=== PATIENT | female | born 1975 | race Caucasian/White ===

== ENCOUNTER → 2016-07-31 | Outpatient (CLI) | payer OTHER ==
[2016-07-31 10:48] LABS: ALT 36 U/L (9-52); AST 24 U/L (14-36); Cholesterol 102 mg/dL (<200); HDL Cholesterol 46 mg/dL (40-60); Triglycerides 126 mg/dL (<150)
== END | disposition home or self-care (01) ==
LOC: LABWHC1 10:01
PROVIDERS: ATTEND Internal Medicine Cardiovascular Disease
DX: E78.2 Mixed hyperlipidemia (principal)
CPT/HCPCS: 36415; 80061; 84450; 84460

== ENCOUNTER 2016-08-06 08:04 | Day surgery (SDC) | payer OTHER ==
[2016-07-31 13:31] VITALS: BMI 26.2
[~2016-08-06 08:04] MED LIST: LACTATED RINGERS 1,000 ML IV SCH
[2016-08-06 08:39] VITALS: RESP 16; TEMP 98.4
[2016-08-06] MEDS ORDERED: fentaNYL (PF) 50 MCG/ML 5 ML AMP IVP STA (08:53)
[2016-08-06] MEDS ORDERED: MIDAZOLAM 2 MG/2 ML VIAL IV ONE (08:53)
[2016-08-06] MEDS ORDERED: LIDOCAINE 1% 20 ML VIAL (10MG/ML) FOR IV START INTRADERMA ONE (09:00)
[2016-08-06] MEDS ORDERED: PROPOFOL 10 MG/ML 20 ML VIAL IV ONE (09:06)
[2016-08-06] MEDS ORDERED: LIDOCAINE 1% INJ 10MG/ML (20 ML MDV) ONE (09:06)
--- NOTE | 2016-08-06 09:06 | P.GSHP ---
History of Present Illness H&P Date: 08/06/16 Chief Complaint: GI bleed, hemorrhoids This a 41-year-old female referred from Dr. sanders. Patient issues with rectal bleeding and hemorrhoids. She does today for colonoscopy. - Constitutional Constitutional: Reports as per HPI Past Medical History Past Medical History: Atrial Fibrillation, Chest Pain / Angina, Hyperlipidemia, Hypertension, Myocardial Infarction ([place]), Osteoarthritis (OA) Additional Past Medical History / Comment(s): BLOOD IN STOOL, BACK PAIN Last Myocardial Infarction Date:: 05/05/14 History of Any Multi-Drug Resistant Organisms: None Reported Past Surgical History: AICD, Back Surgery, Cholecystectomy, Heart Catheterization With Stent, Tubal Ligation Additional Past Surgical History / Comment(s): Ovarian cyst removal, Rt foot surgery- screws. BACK SURGERY X3, CERVICAL FUSION X1 WITH PLATE , LEFT FOOT SURGERY Past Anesthesia/Blood Transfusion Reactions: Motion Sickness Additional Past Anesthesia/Blood Transfusion Reaction / Comment(s): STATES NEEDS HIGH AMOUNT OF PAIN MEDS R/T MEDICATION HX, CHRONIC BACK ISSUES Date of Last Stent Placement:: 05/05/2014 Type of Cardiac Device: AICD Device Placement Date:: 09/30/14 [employer] Past Psychological History: Anxiety, Depression Smoking Status: Former smoker Past Alcohol Use History: None Reported Additional Past Alcohol Use History / Comment(s): QUIT SMOKING 2013, SMOKED 1/2 PPD, STARTED SMOKING AT AGE 17 (1991) Past Drug Use History: Marijuana Additional Drug Use History / Comment(s): States medical marijuana, uses daily. INFORMED TO WITHOLD 24 HRS PRIOR TO PROCEDURE - Past Family History Father Family Medical History: Unable to Obtain Mother Family Medical History: Hypertension Medications and Allergies Home Medications Medication Instructions Recorded Confirmed Type Aspirin 325 mg PO DAILY 07/06/14 08/06/16 History Atorvastatin Calcium [Lipitor] 80 mg PO HS 07/06/14 08/06/16 History ALPRAZolam [Xanax] 1 mg PO TID 06/01/15 08/06/16 History Lisinopril [Zestril] 5 mg PO HS 06/01/15 08/06/16 History Montelukast [Singulair] 10 mg PO HS 06/01/15 08/06/16 History Citalopram Hydrobromide [CeleXA] 20 mg PO DAILY 01/03/16 08/06/16 History Morphine Sulfate ER [Ms Contin] 60 mg PO BID 01/03/16 08/06/16 History Morphine Sulfate [Ms Contin] 15 mg PO BID 01/03/16 08/06/16 History Gabapentin 600 mg PO TID 06/25/16 08/06/16 History Metoprolol Tartrate [Lopressor] 25 mg PO DAILY 06/25/16 08/06/16 History Ranitidine HCl 150 mg PO DAILY PRN 07/31/16 08/06/16 History Allergies Allergy/AdvReac Type Severity Reaction Status Date / Time pregabalin [From Lyrica] Allergy Mild Swelling Verified 08/06/16 08:37 sulfamethoxazole Allergy Mild Nausea & Verified 08/06/16 08:37 [From Bactrim] Vomiting trimethoprim [From Bactrim] Allergy Mild Nausea & Verified 08/06/16 08:37 Vomiting Surgical - Exam Vital Signs Temp Pulse Resp BP Pulse Ox 98.4 F 88 16 110/59 97 08/06/16 08:37 08/06/16 08:37 08/06/16 08:37 08/06/16 08:37 08/06/16 08:37 - General well developed, well nourished, no distress - Eyes PERRL - ENT normal pinna - Neck no masses - Respiratory normal expansion - Cardiovascular Rhythm: regular - Abdomen Abdomen: soft, non tender Assessment and Plan Plan: GI bleed, hemorrhoids. We'll perform colonoscopy.
--- NOTE | 2016-08-06 09:26 | P.OP ---
Date of Procedure: 08/06/16 Preoperative Diagnosis: GI bleed Hemorrhoids Postoperative Diagnosis: Proctitis pathology pending Internal and external hemorrhoids Procedure(s) Performed: Colonoscopy Anesthesia: MAC Surgeon: Jose Angel Weeks Pathology: other (Rectum) Condition: stable Disposition: PACU Description of Procedure: The patient's placed on the endoscopy table in the lateral position. She received IV sedation. Digital rectal exam was performed which revealed internal and external hemorrhoids. The flexible colonoscope was then placed patient anus and passed throughout the entire colon. The ileocecal valve was visualized. The cecum, ascending and transverse colon appeared normal. In the descending and sigmoid colon there is no evidence of any polyps or tumors or diverticula. Scope was then brought back the rectum and there. Minimal area of mild inflammation this area is biopsied. The scope was then retroflexed and the internal hemorrhoids are seen. Scope was withdrawn from the anus.
[2016-08-06 10:20] VITALS: BP 84/57; PULSE 49
== END 2016-08-06 10:27 | disposition home or self-care (01) ==
LOC: ORWHC2ENDO 08:04
PROVIDERS: ATTEND Surgery
DX: K62.89 Other specified diseases of anus and rectum (principal); K64.4 Residual hemorrhoidal skin tags; K64.8 Other hemorrhoids; I25.119 Atherosclerotic heart disease of native coronary artery with unspecified angina pectoris; I10 Essential (primary) hypertension; E78.5 Hyperlipidemia, unspecified; M19.90 Unspecified osteoarthritis, unspecified site; Z95.810 Presence of automatic (implantable) cardiac defibrillator; Z88.1 Allergy status to other antibiotic agents; Z88.8 Allergy status to other drugs, medicaments and biological substances; I25.2 Old myocardial infarction; Z95.5 Presence of coronary angioplasty implant and graft; Z87.891 Personal history of nicotine dependence
CPT/HCPCS: 81025; 88305; 45380; J2001; J3010; J2704

== ENCOUNTER → 2016-08-25 | Day surgery (SDC) | payer OTHER ==
[2016-08-19 14:40] VITALS: BMI 26.6
[~2016-08-25] MED LIST changes: +BUPIVACAIN-EPI 0.5%-1:200,000 30 ML VIAL SQ ONE; +DEXAMETHASONE SOD PHOSPHATE 10 MG/ML 1 ML VIAL IV ONE; +FAMOTIDINE 20 MG/2 ML VIAL IV PRN; +GELATIN SPONGE,ABSORB (LARGE) 1 EACH SPONGE TOPICAL ONE; +GLYCOPYRROLATE 0.2 MG/ML 2 ML VIAL ONE; +HEPARIN SODIUM,PORCINE 5,000 UNIT/ML 1 ML VIAL SQ ONE; +HYDROmorphone (PF) 1 MG/ML ONE; +HYDROmorphone 1 MG/ML 1 ML SYRINGE IVP PRN; +KETAMINE 10 MG/ML 20 ML VIAL ONE; +LACTATED RINGERS 1,000 ML IV ONE; +LIDOCAINE 1% 20 ML VIAL (10MG/ML) FOR IV START INTRADERMA PRN; +LIDOCAINE 1% INJ 10MG/ML (20 ML MDV) ONE; +MIDAZOLAM 2 MG/2 ML VIAL IV PRN; +MIDAZOLAM 2 MG/2 ML VIAL ONE; +NA PHOS,M-B/NA PHOS,DI-BA 133 ML ENEMA RECTAL ONE; +ONDANSETRON 4 MG/2 ML VIAL IVP ONE; +PROPOFOL 10 MG/ML 20 ML VIAL IV ONE; +Pre Op ABX Message 1 EACH MISC MISCELLANE ONE; +SCOPOLAMINE 1.5MG/72HR PATCH TRANSDERM ONE; +fentaNYL (PF) 50 MCG/ML 2 ML AMP ONE
[2016-08-25 07:00] VITALS: TEMP 97.9
--- NOTE | 2016-08-25 07:52 | P.GSHP ---
History of Present Illness H&P Date: 08/25/16 Chief Complaint: Internal and external hemorrhoids This is a 41-year-old female who presents today for hemorrhoidectomy. Patient has chronic pain and is on morphine. She's had issues with opioid constipation. She's had problems with pain and bleeding and itching. - Constitutional Constitutional: Reports as per HPI Past Medical History Past Medical History: Atrial Fibrillation, Coronary Artery Disease (CAD), Chest Pain / Angina, Fibromyalgia, GERD/Reflux, Hyperlipidemia, Myocardial Infarction ([place]), Osteoarthritis (OA) Additional Past Medical History / Comment(s): hx MIGRAINES,INTERSTITIAL CYSTITIS , CHRONIC BACK PAIN, DDD and HERNIATED DISCS, NEUROPATHY randall LEG & rt ARM. USES CANE or walker TO AMBULATE, "low blood pressure", constipation- Last Myocardial Infarction Date:: 05/05/14 History of Any Multi-Drug Resistant Organisms: None Reported Past Surgical History: AICD, Back Surgery, Cholecystectomy, Heart Catheterization With Stent, Orthopedic Surgery, Tubal Ligation Additional Past Surgical History / Comment(s): Ovarian cyst removal, Rt foot surgery-3 screws. BACK SURGERY X3, CERVICAL FUSION X1 WITH PLATE(Full mobility) , left foot joint removed from 2nd toe Past Anesthesia/Blood Transfusion Reactions: Motion Sickness Additional Past Anesthesia/Blood Transfusion Reaction / Comment(s): STATES NEEDS HIGH AMOUNT OF PAIN MEDS R/T MEDICATION HX, full mobility of neck-states no problems with intubation Date of Last Stent Placement:: 05/05/2014 Type of Cardiac Device: AICD Device Placement Date:: 09/30/14 [employer] Past Psychological History: Anxiety Smoking Status: Former smoker Past Alcohol Use History: None Reported Additional Past Alcohol Use History / Comment(s): QUIT SMOKING 2013, SMOKED 1/2 PPD, SINCE AGE 17 (1991) Past Drug Use History: Marijuana Additional Drug Use History / Comment(s): States medical marijuana, uses daily. - Past Family History Father Family Medical History: Unable to Obtain Mother Family Medical History: No Reported History Medications and Allergies Home Medications Medication Instructions Recorded Confirmed Type Atorvastatin Calcium [Lipitor] 80 mg PO HS 07/06/14 08/25/16 History ALPRAZolam [Xanax] 1 mg PO TID PRN 06/01/15 08/25/16 History Lisinopril [Zestril] 5 mg PO HS 06/01/15 08/25/16 History Montelukast [Singulair] 10 mg PO HS 06/01/15 08/25/16 History Citalopram Hydrobromide [CeleXA] 20 mg PO DAILY 01/03/16 08/25/16 History Morphine Sulfate ER [Ms Contin] 60 mg PO BID 01/03/16 08/25/16 History Morphine Sulfate [Ms Contin] 15 mg PO BID PRN 01/03/16 08/25/16 History Gabapentin 600 mg PO TID 06/25/16 08/25/16 History Metoprolol Tartrate [Lopressor] 25 mg PO DAILY 06/25/16 08/25/16 History Aspirin [Adult Low Dose Aspirin EC] 81 mg PO DAILY 08/19/16 08/25/16 History Lactulose 15 gm PO BID 08/19/16 08/25/16 History Nitroglycerin Sl Tabs [Nitrostat] 0.4 mg SUBLINGUAL DIRECTED PRN 08/19/16 History Allergies Allergy/AdvReac Type Severity Reaction Status Date / Time pregabalin [From Lyrica] Allergy Mild Swelling Verified 08/25/16 06:48 sulfamethoxazole Allergy Mild Nausea & Verified 08/25/16 06:48 [From Bactrim] Vomiting trimethoprim [From Bactrim] Allergy Mild Nausea & Verified 08/25/16 06:48 Vomiting Surgical - Exam Vital Signs Temp Pulse BP Pulse Ox 97.9 F 63 83/55 97 08/25/16 06:57 08/25/16 06:57 08/25/16 06:57 08/25/16 06:57 - General well developed, no distress - Eyes PERRL - ENT normal pinna - Neck no masses - Respiratory normal expansion - Cardiovascular Rhythm: regular - Abdomen Abdomen: soft, non tender - Rectum Internal and external hemorrhoids Assessment and Plan Plan: Internal and external hemorrhoids. We'll perform hemorrhoid ectomy. Patient will follow-up with Dr. See for renewal of her morphine prescription.
--- NOTE | 2016-08-25 08:24 | P.OP ---
Date of Procedure: 08/25/16 Preoperative Diagnosis: Internal and external hemorrhoids Postoperative Diagnosis: Internal and Hemorrhoids Procedure(s) Performed: Hemorrhoidectomy Anesthesia: MAC, local Surgeon: Jose Angel Weeks Estimated Blood Loss (ml): 5 Pathology: other (Internal and external hemorrhoids) Condition: stable Disposition: PACU Description of Procedure: The patient's placed on the operating table in the prone jackknife position. She received IV sedation. Her anus was anesthetized 1% local Xylocaine. The hemorrhoids were visualized. The patient had internal and external hemorrhoids. The anal retractor was placed in the anus The left lateral column was grasped with Allis clamp using the Harmonic scissors the rectus performed. Next the right anterior and right posterior hemorrhoidal columns were removed in identical fashion. The bellies hemostasis. A Gelfoam packing was placed anus.
[2016-08-25 10:16] VITALS: BP 91/60; PULSE 58; RESP 18
== END ==
LOC: OR 06:36
PROVIDERS: ATTEND Surgery
DX: K64.8 Other hemorrhoids (principal); K64.4 Residual hemorrhoidal skin tags; K64.5 Perianal venous thrombosis; G89.29 Other chronic pain; E78.5 Hyperlipidemia, unspecified; I10 Essential (primary) hypertension; F41.9 Anxiety disorder, unspecified; M79.7 Fibromyalgia; I25.10 Atherosclerotic heart disease of native coronary artery without angina pectoris; Z95.5 Presence of coronary angioplasty implant and graft; Z95.810 Presence of automatic (implantable) cardiac defibrillator; M19.90 Unspecified osteoarthritis, unspecified site; I25.2 Old myocardial infarction; Z79.891 Long term (current) use of opiate analgesic; Z79.82 Long term (current) use of aspirin; Z79.899 Other long term (current) drug therapy; Z88.1 Allergy status to other antibiotic agents; Z88.2 Allergy status to sulfonamides; Z88.8 Allergy status to other drugs, medicaments and biological substances; Z87.891 Personal history of nicotine dependence
CPT/HCPCS: 81025; 88304; 46260; J2250; J1644; J1100; J2001; J3010; J1170; J2704; 99152; 99153

== ENCOUNTER → 2017-05-19 | Outpatient (CLI) | payer OTHER ==
[2017-05-19 15:46] LABS: Basophils % (A) 0 %; CH 30.1; CHCM 30.4; Eosinophils # (A) 0.1 k/uL (0-0.7); Eosinophils % (A) 1 %; HCT 46.9 % (34.0-46.0); HDW 2.13; HGB 14.4 gm/dL (11.4-16.0); Hypochromasia Slight; Luc # (Auto) 0.15; Luc % (Auto) 2; Lymphocytes # (A) 2.6 k/uL (1.0-4.8); Lymphocytes % (A) 40 %; MCH 30.6 pg (25.0-35.0); MCHC 30.7 g/dL (31.0-37.0); MCV 99.4 fL (80.0-100.0); Monocytes # (A) 0.5 k/uL (0-1.0); Monocytes % (A) 7 %; Neutrophils # (A) 3.2 k/uL (1.3-7.7); Neutrophils % (A) 49 %; RBC 4.72 m/uL (3.80-5.40); RDW 14.6 % (11.5-15.5); WBC 6.5 k/uL (3.8-10.6); WBC (Perox) 6.67
--- NOTE | 2017-05-19 15:55 | XR ---
Abdomen HISTORY: Pain Frontal view of the abdomen on 2 images correlated to prior exam 07/05/2016 Surgical clips again noted in the right upper quadrant, intracardiac defibrillator lead present. Ther e is no bowel obstruction or pneumoperitoneum. Calcifications within the pelvis again noted, suspect there is postop change within the pelvis. Slight spinal curvature again noted. IMPRESSION: Nonobstructive bowel gas pattern. Postop changes.
[2017-05-19 16:00] LABS: ALT 41 U/L (9-52); AST 37 U/L (14-36); Alkaline Phosphatase 62 U/L (38-126); Anion Gap 2 mmol/L; Blood Urea Nitrogen 6 mg/dL (7-17); Calcium 9.4 mg/dL (8.4-10.2); Carbon Dioxide 34 mmol/L (22-30); Chloride 106 mmol/L (98-107); Glucose 70 mg/dL (74-99); Non-African American GFR(MDRD) >60 (>60 ml/min/1.73 sqM); Potassium 5.8 mmol/L (3.5-5.1); Sodium 142 mmol/L (137-145); Total Bilirubin 0.3 mg/dL (0.2-1.3)
== END | disposition home or self-care (01) ==
LOC: RADXRMAIN 15:17
PROVIDERS: ATTEND Family Medicine
DX: R10.9 Unspecified abdominal pain (principal); Z98.890 Other specified postprocedural states
CPT/HCPCS: 36415; 74000; 80053; 85025

== ENCOUNTER → 2017-05-25 | Outpatient (CLI) | payer OTHER | END | disposition home or self-care (01) | LOC: LABWHC1 16:01 | PROVIDERS: ATTEND Family Medicine | DX: E87.5 Hyperkalemia (principal) | CPT/HCPCS: 36415; 84132 ==

== ENCOUNTER → 2017-09-16 | Outpatient (CLI) | payer OTHER ==
--- NOTE | 2017-09-16 16:25 | XR ---
Lumbar spine HISTORY: Trauma and pain 3 views of the lumbar spine correlated to prior exam 12/24/2015 Surgical clips are present in the right upper quadrant. There is a mild spinal curvature. Lumbar vert ebral bodies show preserved height, alignment, and bone mineralization. Disc spaces are stable. Mild multilevel spondylosis again noted. Sclerosis present in the posterior elements. IMPRESSION: No acute fracture or subluxation. Degenerative disc disease and facet arthropathy. Lumbar MRI may be of benefit.
--- NOTE | 2017-09-16 16:40 | XR ---
EXAMINATION TYPE: XR Hip Bilateral and AP pelvis DATE OF EXAM: 09/16/2017 COMPARISON: NONE HISTORY: Trauma and pain TECHNIQUE: A single AP view of the pelvis is obtained. Two views of the bilateral hips are obtained. FINDINGS: There is no acute fracture/dislocation evident in the pelvis. The hip and sacroiliac join ts appear slightly asymmetric, sclerosis on the left may be due to stress change. The overlying soft tissue appears unremarkable. Two views of bilateral hips show no acute fracture or dislocation. No focal lytic or sclerotic lesio n seen in the proximal bilateral femurs. Mild marginal spurring at the femoral heads may be indicati ve of mild osteoarthritis. The overlying soft tissue is unremarkable. Postop changes are noted in th e pelvis. There are vascular calcifications present. IMPRESSION: There is no acute fracture or dislocation in the pelvis or bilateral hips.
== END | disposition home or self-care (01) ==
LOC: RADXRMAIN 14:46
PROVIDERS: ATTEND Family Medicine
DX: M51.36 Other intervertebral disc degeneration, lumbar region (principal); M46.96 Unspecified inflammatory spondylopathy, lumbar region; M25.551 Pain in right hip; M25.552 Pain in left hip; R10.2 Pelvic and perineal pain
CPT/HCPCS: 72100; 73521

== ENCOUNTER → 2017-09-21 | Outpatient (CLI) | payer OTHER ==
--- NOTE | 2017-09-22 11:22 | US ---
EXAMINATION TYPE: US pelvic complete DATE OF EXAM: 09/21/2017 COMPARISON: NONE CLINICAL HISTORY: R10.2 pelvic pain; patient stated during falling motion twisted back and feels bila teral groin pain and right pelvic pain; irregular menses; multiple spine surgeries; TECHNIQUE: Transvaginal (TV) and Transabdominal (TA) . Transabdominal sonographic images of the pel vis were acquired. Transvaginal sonographic images were medically necessary to better assess the fol lowing anatomy: endometrium and bilateral ovary. Date of LMP: 09/10/2017 EXAM MEASUREMENTS: Uterus: 8.3 x 5.2 x 3.7 cm Endometrial Stripe: 0.9 cm Right Ovary: 3.2 x 1.7 x 1.7 cm Left Ovary: 2.2 x 1.8 x 1.7 cm 1. Uterus: Anteverted;multiple Nabothian Cysts are noted in cervix with largest = 0.8 x 0.8 x 0.7cm 2. Endometrium: may be thicker for Day 12 LMP; small calcification adjacent to upper endometrium = 0.3 x 0.2 x 0.1cm. This is a small echogenic area without shadowing. Other etiologies should also be considered. 3. Right Ovary: cyst noted better on TV US = 0.8 x 0.8 x 0.6cm 4. Left Ovary: wnl Spectral, color and waveform doppler imaging shows good arterial and venous flow within the ovaries ; there is no evidence for ovarian torsion. 5. Bilateral Adnexa: wnl 6. Posterior cul-de-sac: wnl IMPRESSION: 1. Mild thickened endometrium. Echogenic area is adjacent to the endometrium. Polyp or calcification could be considered.
== END | disposition home or self-care (01) ==
LOC: RADUSWWP 16:24
PROVIDERS: ATTEND Family Medicine
DX: R93.8 Abnormal findings on diagnostic imaging of other specified body structures (principal)
CPT/HCPCS: 76830; 76856

== ENCOUNTER 2018-04-13 16:51 | Emergency (ER) | payer OTHER ==
[2018-04-13] MEDS ORDERED: SODIUM CHLORIDE 0.9% 1,000 ML IV STA (18:07)
[2018-04-13] MEDS ORDERED: ACETAMINOPHEN TAB 500 MG TAB PO STA (18:07)
[2018-04-13] MEDS ORDERED: ONDANSETRON 4 MG/2 ML VIAL IVP STA (18:08)
--- NOTE | 2018-04-13 18:13 | ED ---
General Adult HPI - General Chief complaint: Nausea/Vomiting/Diarrhea Stated complaint: chest pain Time Seen by Provider: 04/13/18 17:54 Source: patient, RN notes reviewed Mode of arrival: wheelchair Limitations: no limitations - History of Present Illness Initial comments: Patient 43-year-old female presenting to the emergency room today with a chief complaint of sinus infection. Patient states that she has been having some cough congestion and sinus drainage over the last 3 days. She states her daughter had similar symptoms. She states that she called her family doctor did : A for her. She states she woke up from a nap this afternoon and had increased chills and sweating. She states she checked her temperature at home was only 96F. Patient states called her family doctor advised come here to the emergency room. Patient states she still feeling cold and having chills. She states she does have sinus congestion. Has had cough. Patient does admit that she felt nauseated with some of the symptoms this afternoon. Denies any other complaints. Patient denies any recent shortness of breath, chest pain, back pain, abdominal pain, vomiting, numbness or tingling, headaches or visual changes, or any other complaints. - Related Data Home Medications Medication Instructions Recorded Confirmed Atorvastatin Calcium [Lipitor] 80 mg PO HS 07/06/14 04/13/18 ALPRAZolam [Xanax] 1 mg PO BID 06/01/15 04/13/18 Montelukast [Singulair] 10 mg PO HS 06/01/15 04/13/18 Morphine Sulfate ER [Ms Contin] 60 mg PO BID 01/03/16 04/13/18 Morphine Sulfate [Ms Contin] 15 mg PO TID 01/03/16 04/13/18 Gabapentin 600 mg PO TID 06/25/16 04/13/18 Aspirin [Adult Low Dose Aspirin EC] 81 mg PO DAILY 08/19/16 04/13/18 Lactulose 20 gm PO DAILY 08/19/16 04/13/18 Nitroglycerin Sl Tabs [Nitrostat] 0.4 mg SUBLINGUAL DIRECTED PRN 08/19/1608/30 Loratadine [Claritin] 10 mg PO DAILY 04/13/18 04/13/18 Metoprolol Succinate (ER) [Toprol 25 mg PO DAILY 04/13/18 04/13/18 Xl] Previous Rx's Medication Instructions Recorded Furosemide [Lasix] 20 mg PO DAILY #7 tab 06/01/15 Azithromycin [Zithromax Z-pack] 0 mg PO DIRECTED #6 tab 04/13/18 Allergies Allergy/AdvReac Type Severity Reaction Status Date / Time pregabalin [From Lyrica] Allergy Mild Swelling Verified 04/13/18 17:34 sulfamethoxazole Allergy Mild Nausea & Verified 04/13/18 17:34 [From Bactrim] Vomiting trimethoprim [From Bactrim] Allergy Mild Nausea & Verified 04/13/18 17:34 Vomiting Review of Systems ROS Statement: Those systems with pertinent positive or pertinent negative responses have been documented in the HPI. ROS Other: All systems not noted in ROS Statement are negative. Past Medical History Past Medical History: Atrial Fibrillation, Coronary Artery Disease (CAD), Chest Pain / Angina, Fibromyalgia, GERD/Reflux, Hyperlipidemia, Myocardial Infarction ([place]), Osteoarthritis (OA) Additional Past Medical History / Comment(s): hx MIGRAINES,INTERSTITIAL CYSTITIS , CHRONIC BACK PAIN, DDD and HERNIATED DISCS, NEUROPATHY randall LEG & rt ARM. USES CANE or walker TO AMBULATE, "low blood pressure", constipation- Last Myocardial Infarction Date:: 05/05/14 History of Any Multi-Drug Resistant Organisms: None Reported Past Surgical History: AICD, Back Surgery, Cholecystectomy, Heart Catheterization With Stent, Orthopedic Surgery, Tubal Ligation Additional Past Surgical History / Comment(s): Ovarian cyst removal, Rt foot surgery-3 screws. BACK SURGERY X3, CERVICAL FUSION X1 WITH PLATE(Full mobility) , left foot joint removed from 2nd toe Past Anesthesia/Blood Transfusion Reactions: Motion Sickness Additional Past Anesthesia/Blood Transfusion Reaction / Comment(s): STATES NEEDS HIGH AMOUNT OF PAIN MEDS R/T MEDICATION HX, full mobility of neck-states no problems with intubation Date of Last Stent Placement:: 05/05/2014 Type of Cardiac Device: AICD Device Placement Date:: 09/30/14 [employer] Past Psychological History: Anxiety Smoking Status: Former smoker Past Alcohol Use History: None Reported Past Drug Use History: Marijuana - Past Family History Father Family Medical History: Unable to Obtain Mother Family Medical History: No Reported History General Exam - General Exam Comments Initial Comments: General: The patient is awake and alert, in no distress, and does not appear acutely ill. Eye: Pupils are equal, round and reactive to light. Extra-ocular movements are intact. No nystagmus. There is normal conjunctiva bilaterally. No signs of icterus. Ears, nose, mouth and throat: There are moist mucous membranes and no oral lesions. Neck: The neck is supple, there is no tenderness or JVD. Cardiovascular: There is a regular rate and rhythm. No murmur, rub or gallop is appreciated. Respiratory: Lungs are clear to auscultation, respirations are non-labored, breath sounds are equal. No wheezes, stridor, rales, or rhonchi. Musculoskeletal: Normal ROM, no tenderness. Sensation intact. Strength 5/5. Pulses equal bilaterally 2+. Neurological: A&O x 3. CN II-XII intact, There are no obvious motor or sensory deficits. Coordination appears grossly intact. Speech is normal. Skin: Skin is warm and dry and no rashes or lesions are noted. Psychiatric: Cooperative, appropriate mood & affect, normal judgment. Limitations: no limitations Course Vital Signs 04/13/18 16:56 Temperature 98.0 F Pulse Rate 63 Respiratory 18 Rate Blood Pressure 126/77 O2 Sat by Pulse 98 Oximetry Medical Decision Making - Medical Decision Making Patient's labs been reviewed. Patient's chest x-ray does show possible small infiltrate. Results were discussed with patient. She states that amoxicillin was called by the family doctor. She'll be given dose of Rocephin here in emergency room discharged home with azithromycin. Advised follow-up over the next 2 days return here to the emergency room symptoms increase worsen or for any other concerns. - Lab Data Result diagrams: 04/13/18 18:00 04/13/18 18:00 Lab Results 04/13/18 04/13/18 04/13/18 Range/Units 18:00 18:00 18:00 WBC 4.0 (3.8-10.6) k/uL RBC 4.63 (3.80-5.40) m/uL Hgb 14.2 (11.4-16.0) gm/dL Hct 43.6 (34.0-46.0) % MCV 94.2 (80.0-100.0) fL MCH 30.7 (25.0-35.0) pg MCHC 32.6 (31.0-37.0) g/dL RDW 13.2 (11.5-15.5) % Plt Count 137 L (150-450) k/uL Neutrophils % 57 % Lymphocytes % 30 % Monocytes % 7 % Eosinophils % 2 % Basophils % 0 % Neutrophils # 2.3 (1.3-7.7) k/uL Lymphocytes # 1.2 (1.0-4.8) k/uL Monocytes # 0.3 (0-1.0) k/uL Eosinophils # 0.1 (0-0.7) k/uL Basophils # 0.0 (0-0.2) k/uL Sodium 137 (137-145) mmol/L Potassium 4.1 (3.5-5.1) mmol/L Chloride 104 (98-107) mmol/L Carbon Dioxide 29 (22-30) mmol/L Anion Gap 4 mmol/L BUN 8 (7-17) mg/dL Creatinine 0.67 (0.52-1.04) mg/dL Est GFR (CKD-EPI)AfAm >90 (>60 ml/min/1.73 sqM) Est GFR (CKD-EPI)NonAf >90 (>60 ml/min/1.73 sqM) Glucose 107 H (74-99) mg/dL Calcium 9.2 (8.4-10.2) mg/dL Total Bilirubin 0.7 (0.2-1.3) mg/dL AST 44 H (14-36) U/L ALT 35 (9-52) U/L Alkaline Phosphatase 56 (38-126) U/L Total Protein 6.4 (6.3-8.2) g/dL Albumin 3.6 (3.5-5.0) g/dL Lipase 54 (23-300) U/L Urine Color Yellow Urine Appearance Clear (Clear) Urine pH 5.5 (5.0-8.0) Ur Specific [place] 1.047 H (1.001-1.035) Urine Protein Negative (Negative) Urine Glucose (UA) Negative (Negative) Urine Ketones Negative (Negative) Urine Blood Small H (Negative) Urine Nitrite Negative (Negative) Urine Bilirubin Negative (Negative) Urine Urobilinogen <2.0 (<2.0) mg/dL Ur Leukocyte Esterase Small H (Negative) Urine RBC 3 (0-5) /hpf Urine WBC 1 (0-5) /hpf Ur Squamous Epith Cells 7 H (0-4) /hpf Urine Bacteria Rare H (None) /hpf Urine Mucus Rare H (None) /hpf Disposition Clinical Impression: Community acquired pneumonia Disposition: HOME SELF-CARE Condition: Good Instructions: Community Acquired Pneumonia (ED) Additional Instructions: Please use medication as discussed. Please follow-up with family doctor in the next 2 days of symptoms have not improved. Please return to emergency room if the symptoms increase or worsen or for any other concerns. Prescriptions: Azithromycin [Zithromax Z-pack] 0 mg PO DIRECTED #6 tab Is patient prescribed a controlled substance at d/c from ED?: No Referrals: Danny Ovalle MD [Primary Care Provider] - 1-2 days Time of Disposition: 19:20
[2018-04-13] MEDS ORDERED: HYDROmorphone 0.5 MG/0.5 ML SYRINGE IVP STA (18:14)
[2018-04-13 18:36] LABS: Basophils % (A) 0 %; Eosinophils # (A) 0.1 k/uL (0-0.7); Eosinophils % (A) 2 %; HCT 43.6 % (34.0-46.0); HGB 14.2 gm/dL (11.4-16.0); Lymphocytes # (A) 1.2 k/uL (1.0-4.8); Lymphocytes % (A) 30 %; MCH 30.7 pg (25.0-35.0); MCHC 32.6 g/dL (31.0-37.0); MCV 94.2 fL (80.0-100.0); Mean Platelet Volume 7.7; Monocytes # (A) 0.3 k/uL (0-1.0); Monocytes % (A) 7 %; Neutrophils # (A) 2.3 k/uL (1.3-7.7); Neutrophils % (A) 57 %; Platelet Count 137 k/uL (150-450); RBC 4.63 m/uL (3.80-5.40); RDW 13.2 % (11.5-15.5)
[2018-04-13 18:46] LABS: ALT 35 U/L (9-52); AST 44 U/L (14-36); Albumin 3.6 g/dL (3.5-5.0); Alkaline Phosphatase 56 U/L (38-126); Anion Gap 4 mmol/L; Blood Urea Nitrogen 8 mg/dL (7-17); Calcium 9.2 mg/dL (8.4-10.2); Carbon Dioxide 29 mmol/L (22-30); Chloride 104 mmol/L (98-107); Glucose 107 mg/dL (74-99); Lipase 54 U/L (23-300); Potassium 4.1 mmol/L (3.5-5.1); Sodium 137 mmol/L (137-145); Total Bilirubin 0.7 mg/dL (0.2-1.3); Total Protein 6.4 g/dL (6.3-8.2)
[2018-04-13 18:55] LABS: Appearance,Urine Clear (Clear); Bacteria,Urine Rare /hpf; Bilirubin,Urine Negative (Negative); Blood,Urine Small (Negative); Color,Urine Yellow; Glucose,Urine (UA) Negative (Negative); Ketones,Urine Negative (Negative); Leukocyte Esterase,Urine Small (Negative); Mucus,Urine Rare /hpf; Nitrite,Urine Negative (Negative); PH, Urine 5.5 (5.0-8.0); Protein,Urine Negative (Negative); RBC,Urine 3 /hpf (0-5); Squamous Epithelial Cell,Urine 7 /hpf (0-4); Urobilinogen,Urine <2.0 mg/dL (<2.0)
[2018-04-13 18:57] LABS: Specific Gravity,Urine 1.047 (1.001-1.035)
--- NOTE | 2018-04-13 19:01 | XR ---
EXAMINATION: XR chest 2V DATE AND TIME: 04/13/2018 6:45 PM CLINICAL INDICATION: cough TECHNIQUE: PA and lateral COMPARISON: 11/05/2015 radiograph; comparison also made with 06/01/2015 radiographs FINDINGS: There is a pacemaker noted. On the frontal radiograph there is increased density in the right infrahilar position which appears t o be superimposed over the spine on the lateral view. This is a subtle finding, however, but could re present early developing bronchopneumonia if clinically corroborated. If so, would recommend six-week follow-up PA and lateral chest radiograph to prove complete resolution. Lungs are otherwise clear an d well expanded bilaterally. The pleural spaces are negative. The cardiac silhouette is not enlarged. The remainder of the mediastinal silhouette is unremarkable. The skeletal structures and soft tissues are negative for acute findings. IMPRESSION: Subtle radiographic finding, suspicious for developing right lower lobe pneumonia if clinically katina borated.
[2018-04-13 20:23] VITALS: RESP 16
[2018-04-13 20:59] VITALS: BP 97/57; PULSE 52; TEMP 97.6
== END 2018-04-13 21:21 | disposition home or self-care (01) ==
LOC: EC 16:51
DX: J18.9 Pneumonia, unspecified organism (principal); I48.91 Unspecified atrial fibrillation; I25.10 Atherosclerotic heart disease of native coronary artery without angina pectoris; M79.7 Fibromyalgia; E78.5 Hyperlipidemia, unspecified; I25.2 Old myocardial infarction; M19.90 Unspecified osteoarthritis, unspecified site; G62.9 Polyneuropathy, unspecified; F41.9 Anxiety disorder, unspecified; Z95.810 Presence of automatic (implantable) cardiac defibrillator; Z95.5 Presence of coronary angioplasty implant and graft; Z87.891 Personal history of nicotine dependence; Z79.891 Long term (current) use of opiate analgesic; Z79.82 Long term (current) use of aspirin; Z79.899 Other long term (current) drug therapy; Z88.8 Allergy status to other drugs, medicaments and biological substances; Z88.2 Allergy status to sulfonamides
CPT/HCPCS: 36415; 80053; 83690; 85025; 81001; 71046; 99284; 96365; 96375; 96361; J2405; J0696

== ENCOUNTER → 2018-04-29 | Outpatient (CLI) | payer OTHER ==
--- NOTE | 2018-04-29 09:24 | XR ---
EXAMINATION TYPE: XR ribs LT DATE OF EXAM: 04/29/2018 COMPARISON: NONE HISTORY: Left rib pain TECHNIQUE: 2 view submitted FINDINGS: Cardiac device is noted which obscures portions of the rib cage. Visualized portions of the rib cage appear intact. No acute displaced rib fracture. IMPRESSION: No acute displaced rib fracture
--- NOTE | 2018-04-29 09:32 | US ---
EXAMINATION TYPE: US abdomen complete DATE OF EXAM: 04/29/2018 COMPARISON: None CLINICAL HISTORY: 43-year-old female R10.9 Left sided abd pain. Left side pain. GB removed x 8 years ago. TECHNIQUE: Multiple sonographic images of the abdomen are obtained. FINDINGS: EXAM MEASUREMENTS: Liver Length: 17.2 cm CBD: 0.6 cm CHD: 0.9 cm Spleen: 9.0 cm Right Kidney: 10.3 x 5.0 x 4.2 cm Left Kidney: 10.2 x 4.1 x 4.9 cm Pancreas: wnl, main pancreatic duct = 1.4 mm which is normal caliber. Liver: wnl Gallbladder: Surgically absent Evidence for sonographic Alfred's sign: neg Bile duct: Borderline to mildly dilated but within normal limits postcholecystectomy status. Spleen: wnl Right Kidney: wnl Left Kidney: wnl Upper IVC: wnl Abd Aorta: Atherosclerotic changes seen IMPRESSION: 1. Liver measures upper limits of normal in size (17.2 cm). 2. Borderline to mildly dilated bile duct (9 mm) is within acceptable limits postcholecystectomy stat us. Correlate with alkaline phosphatase and bilirubin levels.
== END ==
LOC: RADUSWWP 08:17
PROVIDERS: ATTEND Family Medicine
DX: R07.81 Pleurodynia (principal); R10.9 Unspecified abdominal pain
CPT/HCPCS: 76700

== ENCOUNTER → 2020-01-07 | Outpatient (CLI) | payer OTHER ==
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
== END | disposition home or self-care (01) ==
LOC: RADCTMAIN 14:36
PROVIDERS: ATTEND Family Medicine
DX: M50.222 Other cervical disc displacement at C5-C6 level (principal); M50.30 Other cervical disc degeneration, unspecified cervical region
CPT/HCPCS: 72125

== ENCOUNTER → 2020-03-29 | Outpatient (CLI) | payer SELFPAY | END | disposition home or self-care (01) | LOC: LABWHC1 14:26 | PROVIDERS: ATTEND Radiology Neuroradiology | DX: M51.16 Intervertebral disc disorders with radiculopathy, lumbar region (principal) ==

== ENCOUNTER → 2020-08-28 | Outpatient (CLI) | payer SELFPAY ==
[2020-08-28 22:19] LABS: HCT 42.2 % (37.2-46.3); HGB 13.6 g/dL (12.0-15.0); MCH 30.9 pg (27.0-32.0); MCHC 32.2 g/dL (32.0-37.0); MCV 95.9 fL (80.0-97.0); Mean Platelet Volume 11.1 fL (9.5-12.2); Platelet Count 169 X 10*3/uL (140-440); RDW 12.9 % (11.5-14.5); WBC 6.05 X 10*3/uL (4.50-10.00)
[2020-08-28 22:35] LABS: African American GFR (CKD) 90.8 (60.0-200.0); Albumin 4.4 g/dL (3.80-4.90); Albumin/Globulin Ratio 2.2 (1.60-3.17); Anion Gap 2.7 mmol/L (4.00-12.00); BUN/Creat Ratio 11.11 Ratio (12.00-20.00); Calcium 9.3 mg/dL (8.7-10.3); Carbon Dioxide 35.3 mmol/L (21.6-31.8); Non-African American GFR(CKD) 78.3 (60.0-200.0); Potassium 3.8 mmol/L (3.5-5.5); Total Bilirubin 0.6 mg/dL (0.3-1.2); Total Protein 6.4 g/dL (6.2-8.2)
[2020-08-28 22:45] LABS: Prothrombin Time 10.9 sec (9.9-11.9)
[2020-08-29 08:10] LABS: Appearance,Urine Turbid (Clear); Bilirubin,Urine Negative (Negative); Blood,Urine Negative (Negative); Calcium Oxalate Crystals,Urine Few /hpf; Color,Urine Yellow; Glucose,Urine (UA) Negative (Negative); Ketones,Urine Negative (Negative); Leukocyte Esterase,Urine Small (Negative); Mucus,Urine Many /hpf; Nitrite,Urine Negative (Negative); PH, Urine 5.5 (5.0-8.0); Protein,Urine Trace (Negative); Specific Gravity,Urine 1.023 (1.001-1.035); Urobilinogen,Urine <2.0 mg/dL (<2.0); WBC,Urine 5 /hpf (0-5)
== END | disposition home or self-care (01) ==
LOC: LABWHC1 15:37
PROVIDERS: ATTEND Specialist
DX: M47.12 Other spondylosis with myelopathy, cervical region (principal)
CPT/HCPCS: 36415; 80053; 80323; 81001; 85027; 85610; 85730

== ENCOUNTER → 2020-08-31 | Outpatient (CLI) | payer SELFPAY | END | disposition home or self-care (01) | LOC: LABWHC1 10:43 | PROVIDERS: ATTEND Family Medicine | DX: Z01.818 Encounter for other preprocedural examination (principal); Z20.822 Contact with and (suspected) exposure to COVID-19 | CPT/HCPCS: U0003; C9803 ==

== ENCOUNTER 2022-02-19 10:41 | Emergency (ER) | payer OTHER ==
[2022-02-19 10:47] VITALS: TEMP 98.1
[2022-02-19] MEDS ORDERED: methylPREDNISolone SOD SUCCI 125 MG/2 ML VIAL IV STA (12:14)
[2022-02-19] MEDS ORDERED: ACETAMINOPHEN TAB 500 MG TAB PO STA (12:14)
[2022-02-19] MEDS ORDERED: IBUPROFEN 600 MG TAB PO STA (12:14)
[2022-02-19] MEDS ORDERED: IPRATROPIUM-ALBUTEROL 3 ML NEB INHALATION STA (12:14)
--- NOTE | 2022-02-19 12:48 | XR ---
EXAMINATION TYPE: XR chest 2V DATE OF EXAM: 02/19/2022 COMPARISON: 04-29 TECHNIQUE: PA and lateral views submitted. HISTORY: Cough FINDINGS: The lungs are clear and there is no pneumothorax, pleural effusion, or focal pneumonia. Cardiac dev ice seen postsurgical changes cervical spine. Heart size normal. No overt failure. Surgical clips are quadrant. Hyperinflation suggests COPD. IMPRESSION: 1. No acute process.
--- NOTE | 2022-02-19 12:52 | ED ---
General Adult HPI - General Chief complaint: Nausea/Vomiting/Diarrhea Stated complaint: Covid+, weakness, nausea Time Seen by Provider: 02/19/22 12:02 Source: patient Mode of arrival: ambulatory Limitations: no limitations - History of Present Illness Initial comments: Patient is a 46-year-old female presenting for evaluation after testing positive for Covid. Patient said she was sent here by her PCP for monoclonal antibodies. Patient has a history of CAD and has had an MS. Patient admits to productive cough, nausea, vomiting, weakness, fever, chills. She denies chest pain, palpitations, abdominal pain, sinus pain, ear pain. - Related Data Home Medications Medication Instructions Recorded Confirmed Atorvastatin Calcium [Lipitor] 80 mg PO DAILY 07/06/14 02/19/22 ALPRAZolam [Xanax] 1 mg PO BID PRN 06/01/15 02/19/22 Morphine Sulfate ER [Ms Contin] 60 mg PO BID@0930,2130 01/03/16 02/19/22 Morphine Sulfate [Ms Contin] 15 mg PO BID PRN 01/03/16 02/19/22 Aspirin [Adult Low Dose Aspirin EC] 81 mg PO DAILY 08/19/16 02/19/22 Nitroglycerin Sl Tabs [Nitrostat] 0.4 mg SUBLINGUAL DIRECTED PRN 08/19/16 02/19/22 Metoprolol Succinate [Metoprolol 12.5 mg PO DAILY 02/19/22 02/19/22 Succinate ER] lisinopriL [Zestril] 5 mg PO DAILY 02/19/22 02/19/22 Allergies Allergy/AdvReac Type Severity Reaction Status Date / Time pregabalin [From Lyrica] Allergy Mild Swelling Verified 02/19/22 15:40 sulfamethoxazole Allergy Mild Nausea & Verified 02/19/22 15:40 [From Bactrim] Vomiting trimethoprim [From Bactrim] Allergy Mild Nausea & Verified 02/19/22 15:40 Vomiting Review of Systems ROS Statement: Those systems with pertinent positive or pertinent negative responses have been documented in the HPI. ROS Other: All systems not noted in ROS Statement are negative. Past Medical History Past Medical History: Atrial Fibrillation, Coronary Artery Disease (CAD), Chest Pain / Angina, Fibromyalgia, GERD/Reflux, Hyperlipidemia, Myocardial Infarction (MS), Osteoarthritis (OA) Additional Past Medical History / Comment(s): hx MIGRAINES,INTERSTITIAL CYSTITIS, CHRONIC BACK PAIN, DDD and HERNIATED DISCS, NEUROPATHY randall LEG & rt ARM. USES CANE or walker TO AMBULATE, "low blood pressure", constipation- Last Myocardial Infarction Date:: 05/05/14 History of Any Multi-Drug Resistant Organisms: None Reported Past Surgical History: AICD, Back Surgery, Cholecystectomy, Heart Catheterization With Stent, Orthopedic Surgery, Tubal Ligation Additional Past Surgical History / Comment(s): Ovarian cyst removal, Rt foot surgery-3 screws. BACK SURGERY X3, CERVICAL FUSION X1 WITH PLATE(Full mobility), left foot joint removed from 2nd toe Past Anesthesia/Blood Transfusion Reactions: Motion Sickness Additional Past Anesthesia/Blood Transfusion Reaction / Comment(s): STATES NEEDS HIGH AMOUNT OF PAIN MEDS R/T MEDICATION HX, full mobility of neck-states no problems with intubation Date of Last Stent Placement:: 05/05/2014 Type of Cardiac Device: AICD Device Placement Date:: 09/30/14 [employer] Past Psychological History: Anxiety Smoking Status: Never smoker Past Alcohol Use History: None Reported Past Drug Use History: Marijuana - Past Family History Father Family Medical History: Unable to Obtain Mother Family Medical History: No Reported History General Exam Limitations: no limitations General appearance: alert, in no apparent distress Head exam: Present: atraumatic, normocephalic, normal inspection Eye exam: Present: normal appearance, EOMI. Absent: scleral icterus, periorbital swelling Respiratory exam: Present: normal lung sounds bilaterally. Absent: respiratory distress, wheezes, rales, rhonchi, stridor Cardiovascular Exam: Present: regular rate, normal rhythm, normal heart sounds. Absent: systolic murmur, diastolic murmur, rubs, gallop, clicks Neurological exam: Present: alert, oriented X3, CN II-XII intact Psychiatric exam: Present: normal affect, normal mood Skin exam: Present: warm, dry, intact, normal color. Absent: rash Course Vital Signs 02/19/22 02/19/22 02/19/22 10:45 14:46 14:57 Temperature 98.1 F Pulse Rate 64 71 54 L Respiratory 20 18 14 Rate Blood Pressure 115/77 134/83 O2 Sat by Pulse 98 99 Oximetry 02/19/22 02/19/22 02/19/22 15:09 16:14 16:59 Temperature 98.1 F Pulse Rate 55 L 83 67 Respiratory 14 18 18 Rate Blood Pressure 116/80 128/87 O2 Sat by Pulse 96 99 Oximetry Medical Decision Making - Medical Decision Making Patient is a 46-year-old female history of CAD presenting requesting monoclonal antibodies for Covid. Patient states symptoms started yesterday, she tested positive at home today. Her PCP advised her to present to the ER. On examination patient appears fatigued, heart and lungs are clear to auscultation. Patient tested positive for Covid at our facility. CBC and CMP are unremarkable. UA shows signs of contamination, will be sent for culture. Patient is not having any urinary symptoms at this time. Patient is treated with monoclonal antibodies. Monitored for one hour for any adverse reaction. Discussed quarantine guidelines and supportive treatment. Follow-up with PCP. Report back to ER with any new or worsening symptoms. Discussed return parameters answered all questions. Patient conveyed verbal understanding and agreed to the plan. My attending is Dr. Hernandez - Lab Data Result diagrams: 02/19/22 14:44 02/19/22 14:44 Lab Results 02/19/22 02/19/22 02/19/22 Range/Units 14:44 14:44 14:44 WBC 4.0 (3.8-10.6) k/uL RBC 4.93 (3.80-5.40) m/uL Hgb 14.5 (11.4-16.0) gm/dL Hct 46.5 H (34.0-46.0) % MCV 94.2 (80.0-100.0) fL MCH 29.4 (25.0-35.0) pg MCHC 31.2 (31.0-37.0) g/dL RDW 13.3 (11.5-15.5) % Plt Count 111 L (150-450) k/uL MPV 8.7 Neutrophils % 64 % Lymphocytes % 28 % Monocytes % 6 % Eosinophils % 0 % Basophils % 1 % Neutrophils # 2.6 (1.3-7.7) k/uL Lymphocytes # 1.1 (1.0-4.8) k/uL Monocytes # 0.3 (0-1.0) k/uL Eosinophils # 0.0 (0-0.7) k/uL Basophils # 0.0 (0-0.2) k/uL Sodium (137-145) mmol/L Potassium (3.5-5.1) mmol/L Chloride (98-107) mmol/L Carbon Dioxide (22-30) mmol/L Anion Gap mmol/L BUN (7-17) mg/dL Creatinine (0.52-1.04) mg/dL Est GFR (CKD-EPI)AfAm (>60 ml/min/1.73 sqM) Est GFR (CKD-EPI)NonAf (>60 ml/min/1.73 sqM) Glucose (74-99) mg/dL Calcium (8.4-10.2) mg/dL Total Bilirubin (0.2-1.3) mg/dL AST (14-36) U/L ALT (4-34) U/L Alkaline Phosphatase (38-126) U/L Total Protein (6.3-8.2) g/dL Albumin (3.5-5.0) g/dL Urine Color Yellow Urine Appearance Clear (Clear) Urine pH 7.0 (5.0-8.0) Ur Specific [place] 1.010 (1.001-1.035) Urine Protein Negative (Negative) Urine Glucose (UA) Negative (Negative) Urine Ketones 1+ H (Negative) Urine Blood Negative (Negative) Urine Nitrite Negative (Negative) Urine Bilirubin Negative (Negative) Urine Urobilinogen <2.0 (<2.0) mg/dL Ur Leukocyte Esterase Large H (Negative) Urine RBC 2 (0-5) /hpf Urine WBC 7 H (0-5) /hpf Ur Squamous Epith Cells 4 (0-4) /hpf Urine Bacteria Rare H (None) /hpf Coronavirus (PCR) Detected A (Not Detectd) 02/19/22 Range/Units 14:44 WBC (3.8-10.6) k/uL RBC (3.80-5.40) m/uL Hgb (11.4-16.0) gm/dL Hct (34.0-46.0) % MCV (80.0-100.0) fL MCH (25.0-35.0) pg MCHC (31.0-37.0) g/dL RDW (11.5-15.5) % Plt Count (150-450) k/uL MPV Neutrophils % % Lymphocytes % % Monocytes % % Eosinophils % % Basophils % % Neutrophils # (1.3-7.7) k/uL Lymphocytes # (1.0-4.8) k/uL Monocytes # (0-1.0) k/uL Eosinophils # (0-0.7) k/uL Basophils # (0-0.2) k/uL Sodium 140 (137-145) mmol/L Potassium 3.6 (3.5-5.1) mmol/L Chloride 99 (98-107) mmol/L Carbon Dioxide 29 (22-30) mmol/L Anion Gap 12 mmol/L BUN 10 (7-17) mg/dL Creatinine 0.66 (0.52-1.04) mg/dL Est GFR (CKD-EPI)AfAm >90 (>60 ml/min/1.73 sqM) Est GFR (CKD-EPI)NonAf >90 (>60 ml/min/1.73 sqM) Glucose 105 H (74-99) mg/dL Calcium 9.2 (8.4-10.2) mg/dL Total Bilirubin 1.2 (0.2-1.3) mg/dL AST 52 H (14-36) U/L ALT 28 (4-34) U/L Alkaline Phosphatase 60 (38-126) U/L Total Protein 6.7 (6.3-8.2) g/dL Albumin 4.0 (3.5-5.0) g/dL Urine Color Urine Appearance (Clear) Urine pH (5.0-8.0) Ur Specific [place] (1.001-1.035) Urine Protein (Negative) Urine Glucose (UA) (Negative) Urine Ketones (Negative) Urine Blood (Negative) Urine Nitrite (Negative) Urine Bilirubin (Negative) Urine Urobilinogen (<2.0) mg/dL Ur Leukocyte Esterase (Negative) Urine RBC (0-5) /hpf Urine WBC (0-5) /hpf Ur Squamous Epith Cells (0-4) /hpf Urine Bacteria (None) /hpf Coronavirus (PCR) (Not Detectd) Disposition Clinical Impression: COVID Disposition: HOME SELF-CARE Condition: Good Instructions (If sedation given, give patient instructions): COVID-19 (Coronavirus Disease 2019) (ED) Additional Instructions: Quarantine for 5 days, followed by 5 days of strict mask use while in public. If after initial 5 days, you are still symptomatic or experiencing a fever, you must continue quarantining until you're symptom-free and fever free for at least 24 hours. Follow-up with PCP. Report back to ER if any new or worsening symptoms. Is patient prescribed a controlled substance at d/c from ED?: No Referrals: Danny Ovalle MD [Primary Care Provider] - 1-2 days Time of Disposition: 17:15
[2022-02-19 14:53] LABS: Basophils % (A) 1 %; Eosinophils % (A) 0 %; HCT 46.5 % (34.0-46.0); HGB 14.5 gm/dL (11.4-16.0); Lymphocytes # (A) 1.1 k/uL (1.0-4.8); Lymphocytes % (A) 28 %; MCH 29.4 pg (25.0-35.0); MCHC 31.2 g/dL (31.0-37.0); MCV 94.2 fL (80.0-100.0); Mean Platelet Volume 8.7; Monocytes # (A) 0.3 k/uL (0-1.0); Monocytes % (A) 6 %; Neutrophils # (A) 2.6 k/uL (1.3-7.7); Neutrophils % (A) 64 %; Platelet Count 111 k/uL (150-450); RBC 4.93 m/uL (3.80-5.40); RDW 13.3 % (11.5-15.5)
[2022-02-19 15:01] LABS: ALT 28 U/L (4-34); AST 52 U/L (14-36); African American GFR (CKD) >90 (>60 ml/min/1.73 sqM); Alkaline Phosphatase 60 U/L (38-126); Anion Gap 12 mmol/L; Blood Urea Nitrogen 10 mg/dL (7-17); Calcium 9.2 mg/dL (8.4-10.2); Carbon Dioxide 29 mmol/L (22-30); Chloride 99 mmol/L (98-107); Glucose 105 mg/dL (74-99); Non-African American GFR(CKD) >90 (>60 ml/min/1.73 sqM); Potassium 3.6 mmol/L (3.5-5.1); Sodium 140 mmol/L (137-145); Total Bilirubin 1.2 mg/dL (0.2-1.3); Total Protein 6.7 g/dL (6.3-8.2)
[2022-02-19] MEDS ORDERED: SODIUM CHLORIDE 0.9% 1,000 ML IV ONE (15:15)
[2022-02-19] MEDS ORDERED: BEBTELOVIMAB (EUA) 175 MG/2 ML VIAL IV ONE (15:30)
[2022-02-19 15:47] LABS: Appearance,Urine Clear (Clear); Bacteria,Urine Rare /hpf; Bilirubin,Urine Negative (Negative); Blood,Urine Negative (Negative); Color,Urine Yellow; Glucose,Urine (UA) Negative (Negative); Ketones,Urine 1+ (Negative); Leukocyte Esterase,Urine Large (Negative); Nitrite,Urine Negative (Negative); Protein,Urine Negative (Negative); RBC,Urine 2 /hpf (0-5); Squamous Epithelial Cell,Urine 4 /hpf (0-4); Urobilinogen,Urine <2.0 mg/dL (<2.0); WBC,Urine 7 /hpf (0-5)
[2022-02-19 16:19] VITALS: RESP 18
[2022-02-19 17:00] VITALS: BP 128/87; PULSE 67
== END 2022-02-19 17:01 | disposition home or self-care (01) ==
LOC: EC 10:41
DX: U07.1 COVID-19 (principal); I48.91 Unspecified atrial fibrillation; I25.10 Atherosclerotic heart disease of native coronary artery without angina pectoris; K21.9 Gastro-esophageal reflux disease without esophagitis; E78.5 Hyperlipidemia, unspecified; M19.90 Unspecified osteoarthritis, unspecified site; M79.7 Fibromyalgia; Z88.8 Allergy status to other drugs, medicaments and biological substances; Z88.2 Allergy status to sulfonamides; Z79.899 Other long term (current) drug therapy; Z79.82 Long term (current) use of aspirin
CPT/HCPCS: 36415; 94640; 80053; 85025; 81001; 87635; 71046; 99285; 96374; J2930; Q0222

== ENCOUNTER → 2023-03-09 | Outpatient (CLI) | payer BC, OTHER ==
[2023-03-09 15:46] LABS: ALT 26 U/L (8-44); AST 35 U/L (13-35); Chol/HDL Ratio 2.13 Ratio; LDL Cholesterol,Calculated 66.2 mg/dL (0.0-131.0); VLDL Calculation 13.42 mg/dL (5.00-40.00)
== END | disposition home or self-care (01) ==
LOC: LABWHC1 09:57
PROVIDERS: ATTEND Internal Medicine Cardiovascular Disease
DX: E78.2 Mixed hyperlipidemia (principal)
CPT/HCPCS: 36415; 80061; 84450; 84460

== ENCOUNTER → 2024-03-24 | Outpatient (CLI) | payer OTHER ==
--- NOTE | 2024-03-24 20:04 | CT ---
EXAMINATION TYPE: CT lumbar spine wo/w con DATE OF EXAM: 03/24/2024 COMPARISON: HISTORY: Low back pain, denies injury CT DLP: 1399.9 mGycm Automated exposure control for dose reduction was used. CONTRAST: CT scan of the lumbar is performed without and with IV Contrast, patient injected with mL of Isovue [address] of the lumbar spine was performed. Bone and soft tissue window settings are submitted as well as coronal and sagittal reconstructions. L1-L2: Normal disc space height. No disc herniation protrusion or central stenosis. No facet joint arthropathy. No evidence for foraminal encroachment. L2-L3: Mild degenerative disc space narrowing and posterior disc bulge. Mild effacement of the ventra l thecal sac. There may be bilateral lateral stenosis. No evidence for central stenosis. Mild left fo raminal encroachment. L3-L4: Normal disc space height. No disc herniation protrusion or central stenosis. No facet joint arthropathy. No evidence for foraminal encroachment. L4-L5: There is evidence of vacuum disc. Posterior disc bulge effaces the ventral thecal sac. There i s mild central stenosis. Mild bilateral neural foraminal encroachment. No peterson herniation. L5-S1: Degenerative disc space narrowing and vacuum disks. Left posterocentral and slightly greater t owards the left subligamentous disc herniation effaces the ventral thecal sac. No evidence for centra l stenosis or lateral recess stenosis. Foramina appear patent bilaterally. No pathologic enhancement. No paraspinal masses. No fracture or malalignment.. IMPRESSION: 1. Degenerative disc disease as discussed above with central stenosis at L4-5. 2. Subligamentous disc herniation L5-S1. 3. Bilateral lateral recess stenosis at L2-3.
--- NOTE | 2024-03-25 10:18 | CT ---
EXAMINATION TYPE: CT cervical spine wo/w con DATE OF EXAM: 03/24/2024 COMPARISON: 01/07/2020 HISTORY: neck pain CT DLP: [address] of the cervical spine was performed with bone and soft tissue window settings submitted . Coronal and sagittal reconstruction is obtained. Contrast: Isovue-300 100 mL C2-3: Within normal limits C3-4: No significant degenerative narrowing. Posterocentral disc protrusion mildly effaces the ventra l thecal sac. No evidence for cord contact. No central stenosis or foraminal encroachment. C4-5 C5-6 and C6-7: Changes of anterior cervical discectomy and fusion with intervertebral spacers in place and ventral fixation plate and screws noted. Postoperative alignment is within normal limits. No evidence for recurrent process. C7-T1: Within normal limits No fracture or subluxation. No pathologic enhancement. IMPRESSION: 1. Posterior central disc protrusion at C3-4 as discussed. 2. ACDF changes as discussed
== END | disposition home or self-care (01) ==
LOC: RADCTMAIN 18:31
PROVIDERS: ATTEND Physical Medicine & Rehabilitation Pain Medicine
DX: M51.17 Intervertebral disc disorders with radiculopathy, lumbosacral region (principal); M47.26 Other spondylosis with radiculopathy, lumbar region; M48.061 Spinal stenosis, lumbar region without neurogenic claudication; M50.11 Cervical disc disorder with radiculopathy, high cervical region; Z98.1 Arthrodesis status
CPT/HCPCS: 72127; 72133

== ENCOUNTER 2024-10-13 20:28 | Emergency (ER) | payer OTHER ==
[2024-10-13 20:33] VITALS: TEMP 97.8
--- NOTE | 2024-10-13 21:36 | ED ---
General Adult HPI - General Chief complaint: Abdominal Pain Stated complaint: Abdominal Pain, Low Back Pain Time Seen by Provider: 10/13/24 21:12 Source: patient, RN notes reviewed, old records reviewed Mode of arrival: ambulatory Limitations: no limitations - History of Present Illness Initial comments: 49 yo female presenting for evaluation of generalized abdominal cramping. Patient has had ongoing issues for the past several weeks. She has had in termittent constipation and diarrhea. No vomiting. No fever. She was seen at outside emergency department followed by her primary care followed by second emergency visit at [facility] in [place]. She states she had CAT scan performed but left prior to completing her treatment secondary to insurance issues. Symptoms persist. She has had a poor appetite secondary to generalized bloating. - Related Data Home Medications Medication Instructions Recorded Confirmed Atorvastatin Calcium [Lipitor] 80 mg PO DAILY 07/06/14 02/19/22 ALPRAZolam [Xanax] 1 mg PO BID PRN 06/01/15 02/19/22 Morphine Sulfate ER [Ms Contin] 60 mg PO BID@0930,2130 01/03/16 02/19/22 Morphine Sulfate [Ms Contin] 15 mg PO BID PRN 01/03/16 02/19/22 Aspirin [Adult Low Dose Aspirin EC] 81 mg PO DAILY 08/19/16 02/19/22 Nitroglycerin Sl Tabs [Nitrostat] 0.4 mg SUBLINGUAL DIRECTED PRN 08/19/16 02/19/22 Metoprolol Succinate [Metoprolol 12.5 mg PO DAILY 02/19/22 02/19/22 Succinate ER] lisinopriL [Zestril] 5 mg PO DAILY 02/19/22 02/19/22 Allergies Allergy/AdvReac Type Severity Reaction Status Date / Time pregabalin [From Lyrica] Allergy Mild Swelling Verified 10/13/24 20:33 sulfamethoxazole Allergy Mild Nausea & Verified 10/13/24 20:33 [From Bactrim] Vomiting trimethoprim [From Bactrim] Allergy Mild Nausea & Verified 10/13/24 20:33 Vomiting Review of Systems ROS Statement: Those systems with pertinent positive or pertinent negative responses have been documented in the HPI. ROS Other: All systems not noted in ROS Statement are negative. Past Medical History Past Medical History: Atrial Fibrillation, Coronary Artery Disease (CAD), Chest Pain / Angina, Fibromyalgia, GERD/Reflux, Hyperlipidemia, Myocardial Infarction (NH), Osteoarthritis (OA) Additional Past Medical History / Comment(s): hx MIGRAINES,INTERSTITIAL CYSTITIS, CHRONIC BACK PAIN, DDD and HERNIATED DISCS, NEUROPATHY randall LEG & rt ARM. USES CANE or walker TO AMBULATE, "low blood pressure", constipation- Last Myocardial Infarction Date:: 05/05/14 History of Any Multi-Drug Resistant Organisms: None Reported Past Surgical History: AICD, Back Surgery, Cholecystectomy, Heart Catheterization With Stent, Orthopedic Surgery, Tubal Ligation Additional Past Surgical History / Comment(s): Ovarian cyst removal, Rt foot surgery-3 screws. BACK SURGERY X3, CERVICAL FUSION X1 WITH PLATE(Full mobility), left foot joint removed from 2nd toe Past Anesthesia/Blood Transfusion Reactions: Motion Sickness Additional Past Anesthesia/Blood Transfusion Reaction / Comment(s): STATES NEEDS HIGH AMOUNT OF PAIN MEDS R/T MEDICATION HX, full mobility of neck-states no prob lems with intubation Date of Last Stent Placement:: 05/05/2014 Type of Cardiac Device: AICD Device Placement Date:: 09/30/14 [employer] Past Psychological History: Anxiety Smoking Status: Never smoker Past Alcohol Use History: None Reported Past Drug Use History: Marijuana - Past Family History Father Family Medical History: Unable to Obtain Mother Family Medical History: No Reported History General Exam Limitations: no limitations General appearance: alert, in no apparent distress Head exam: Present: atraumatic, normocephalic Eye exam: Present: normal appearance, PERRL ENT exam: Present: normal exam Neck exam: Present: normal inspection. Absent: tenderness, meningismus Respiratory exam: Present: normal lung sounds bilaterally. Absent: respiratory distress, wheezes Cardiovascular Exam: Present: regular rate, normal rhythm GI/Abdominal exam: Present: soft, tenderness (mild). Absent: distended, guarding, rebound Neurological exam: Present: alert, oriented X3, CN II-XII intact. Absent: motor sensory deficit Skin exam: Present: warm, dry, intact Course Vital Signs 10/13/24 20:30 Temperature 97.8 F Pulse Rate 74 Respiratory 15 Rate Blood Pressure 125/68 O2 Sat by Pulse 97 Oximetry Medical Decision Making - Medical Decision Making Was pt. sent in by a medical professional or institution (, PA, FLUE CLEANER, urgent ca re, hospital, or [place] health care facility...) When possible be specific @ -No Did you speak to anyone other than the patient for history (EMS, parent, family, police, friend...)? What history was obtained from this source @ -No Did you review nursing and triage notes (agree or disagree)? Why? @ -I reviewed and agree with nursing and triage notes Were old charts reviewed (outside hosp., previous admission, EMS record, old EKG, old radiological studies, urgent care reports/EKG's, [place] health care facility records)? Report findings @ -No old charts were reviewed Differential Abdominal Pain Women: Appendicitis, Cholecystitis, diverticulosis, ischemic bowel, pancreatitis, hepatitis, UTI, gastroenteritis, AAA, incarcerated hernia, bowel obstruction, constipation, inflammatory bowel, hepatitis, peptic ulcer disease, splenic infarction, perforated viscus, vulvitis, ovarian torsion, PID, kidney stone, placenta abruption, this is not meant to be an all-inclusive list EKG interpreted by me (3pts min.). @ -As above X-rays interpreted by me (1pt min.). @ -KUB negative for obstruction, no significant constipation CT interpreted by me (1pt min.). @ -None done U/S interpreted by me (1pt. min.). @ -None done What testing was considered but not performed or refused? (CT, X-rays, U/S, labs)? Why? @ -None What meds were considered but not given or refused? Why? @ -None Did you discuss the management of the patient with other professionals (professionals i.e. , PA, FLUE CLEANER, lab, RT, psych nurse, curtain worker, bending frame operator, teacher, parole hearing officer, major case detective)? Give summary @ -No Was smoking cessation discussed for >3mins.? @ -No Was critical care preformed (if so, how long)? @ -No Were there social determinants of health that impacted care today? How? (Homelessness, low income, unemployed, alcoholism, drug addiction, transportation, low edu. Level, literacy, decrease access to med. care, fpc, rehab)? @ -No Was there de-escalation of care discussed even if they declined (Discuss DNR or withdrawal of care, Hospice)? DNR status @ -No What co-morbidities impacted this encounter? (DM, HTN, Smoking, COPD, CAD, Cancer, CVA, ARF, Chemo, Hep., AIDS, mental health diagnosis, sleep apnea, morbid obesity)? @ -None Was patient admitted / discharged? Hospital course, mention meds given and route, prescriptions, significant lab abnormalities, going to OR and other pertinent info. @ -49-year-old female with generalized abdominal pain and discomfort, cramping in nature. Patient well-appearing with stable vitals. States that she has not had much to eat or drink but does appear well-hydrated. Patient has normal CBC, normal CMP, negative urinalysis. I did obtain an x-ray of the abdomen which was negative for obstruction or intraperitoneal free air, no significant constipation. I attempted to obtain records from [facility] but was unsuccessful. Patient felt to be stable for discharge with outpatient follow- up. Strict return parameters discussed Undiagnosed new problem with uncertain prognosis? @ -No Drug Therapy requiring intensive monitoring for toxicity (Heparin, Nitro, Insul in, Cardizem)? @ -No Were any procedures done? @ -No Diagnosis/symptom? @Abdominal pain Acute, or Chronic, or Acute on Chronic? @ -Acute on chronic Uncomplicated (without systemic symptoms) or Complicated (systemic symptoms)? @ -Default Side effects of treatment? @ -No Exacerbation, Progression, or Severe Exacerbation? @ -No Poses a threat to life or bodily function? How? (Chest pain, USA, NH, pneumonia, PE, COPD, DKA, ARF, appy, cholecystitis, CVA, Diverticulitis, Homicidal, Suicidal, threat to staff... and all critical care pts) @ -No - Lab Data Result diagrams: 10/13/24 22:18 10/13/24 22:18 Lab Results 10/13/24 10/13/24 10/13/24 Range/Units 22:18 22:18 22:18 WBC 7.7 (3.8-10.6) k/uL RBC 4.68 (3.80-5.40) m/uL Hgb 13.9 (11.4-16.0) gm/dL Hct 43.8 (34.0-46.0) % MCV 93.5 (80.0-100.0) fL MCH 29.7 (25.0-35.0) pg MCHC 31.8 (31.0-37.0) g/dL RDW 13.9 (11.5-15.5) % Plt Count 188 (150-450) k/uL MPV 7.8 Neutrophils % 66 % Lymphocytes % 26 % Monocytes % 5 % Eosinophils % 1 % Basophils % 0 % Neutrophils # 5.0 (1.3-7.7) k/uL Lymphocytes # 2.0 (1.0-4.8) k/uL Monocytes # 0.4 (0-1.0) k/uL Eosinophils # 0.1 (0-0.7) k/uL Basophils # 0.0 (0-0.2) k/uL PT 10.3 (10.0-12.5) sec INR 0.9 (<1.2) APTT 23.4 (22.0-30.0) sec Sodium (137-145) mmol/L Potassium (3.5-5.1) mmol/L Chloride (98-107) mmol/L Carbon Dioxide (22-30) mmol/L Anion Gap mmol/L BUN (7-17) mg/dL Creatinine (0.52-1.04) mg/dL Est GFR (CKD-EPI)AfAm (>60 ml/min/1.73 sqM) Est GFR (CKD-EPI)NonAf (>60 ml/min/1.73 sqM) Glucose (74-99) mg/dL Plasma Lactic Acid [place] (0.7-2.0) mmol/L Calcium (8.4-10.2) mg/dL Total Bilirubin (0.2-1.3) mg/dL AST (14-36) U/L ALT (4-34) U/L Alkaline Phosphatase (38-126) U/L Total Protein (6.3-8.2) g/dL Albumin (3.5-5.0) g/dL Lipase (23-300) U/L Urine Color Colorless Urine Appearance Clear (Clear) Urine pH 7.0 (5.0-8.0) Ur Specific [place] 1.005 (1.001-1.035) Urine Protein Negative (Negative) Urine Glucose (UA) Negative (Negative) Urine Ketones Negative (Negative) Urine Blood Negative (Negative) Urine Nitrite Negative (Negative) Urine Bilirubin Negative (Negative) Urine Urobilinogen <2.0 (<2.0) mg/dL Ur Leukocyte Esterase Small H (Negative) Urine RBC 1 (0-5) /hpf Urine WBC 1 (0-5) /hpf Ur Squamous Epith Cells <1 (0-4) /hpf 10/13/24 10/13/24 Range/Units 22:18 22:18 WBC (3.8-10.6) k/uL RBC (3.80-5.40) m/uL Hgb (11.4-16.0) gm/dL Hct (34.0-46.0) % MCV (80.0-100.0) fL MCH (25.0-35.0) pg MCHC (31.0-37.0) g/dL RDW (11.5-15.5) % Plt Count (150-450) k/uL MPV Neutrophils % % Lymphocytes % % Monocytes % % Eosinophils % % Basophils % % Neutrophils # (1.3-7.7) k/uL Lymphocytes # (1.0-4.8) k/uL Monocytes # (0-1.0) k/uL Eosinophils # (0-0.7) k/uL Basophils # (0-0.2) k/uL PT (10.0-12.5) sec INR (<1.2) APTT (22.0-30.0) sec Sodium 138 (137-145) mmol/L Potassium 4.2 (3.5-5.1) mmol/L Chloride 102 (98-107) mmol/L Carbon Dioxide 35 H (22-30) mmol/L Anion Gap 1 mmol/L BUN 9 (7-17) mg/dL Creatinine 0.78 (0.52-1.04) mg/dL Est GFR (CKD-EPI)AfAm >90 (>60 ml/min/1.73 sqM) Est GFR (CKD-EPI)NonAf >90 (>60 ml/min/1.73 sqM) Glucose 87 (74-99) mg/dL Plasma Lactic Acid [place] 1.0 (0.7-2.0) mmol/L Calcium 9.8 (8.4-10.2) mg/dL Total Bilirubin 0.7 (0.2-1.3) mg/dL AST 40 H (14-36) U/L ALT 29 (4-34) U/L Alkaline Phosphatase 56 (38-126) U/L Total Protein 6.8 (6.3-8.2) g/dL Albumin 3.9 (3.5-5.0) g/dL Lipase 85 (23-300) U/L Urine Color Urine Appearance (Clear) Urine pH (5.0-8.0) Ur Specific [place] (1.001-1.035) Urine Protein (Negative) Urine Glucose (UA) (Negative) Urine Ketones (Negative) Urine Blood (Negative) Urine Nitrite (Negative) Urine Bilirubin (Negative) Urine Urobilinogen (<2.0) mg/dL Ur Leukocyte Esterase (Negative) Urine RBC (0-5) /hpf Urine WBC (0-5) /hpf Ur Squamous Epith Cells (0-4) /hpf Disposition Clinical Impression: Abdominal pain Disposition: HOME SELF-CARE Condition: Fair Instructions (If sedation given, give patient instructions): Abdominal Pain (ED) Is patient prescribed a controlled substance at d/c from ED?: No Referrals: Danny Ovalle [Primary Care Provider] - 1-2 days Time of Disposition: 22:57
--- NOTE | 2024-10-13 21:54 | XR ---
EXAMINATION TYPE: XR KUB DATE OF EXAM: 10/13/2024 COMPARISON: Abdominal radiograph 05/19/2017, KUB radiograph 07/05/2016 HISTORY: Abdominal pain TECHNIQUE: Single upright KUB image of the abdomen is obtained FINDINGS: Small bowel demonstrates no evidence for dilatation or air fluid levels. Gas and fecal material is seen in non-distended colon. No convincing evidence for pneumoperitoneum. Multiple pelvic phleboliths with a 8 mm calculus in the left pelvis. Cholecystectomy clips in the rig ht upper quadrant. Cardiomegaly with AICD lead identified. The osseous structures are intact. IMPRESSION: 1. Overall nonobstructive bowel gas pattern. 2. Multiple pelvic phleboliths with a 8 mm calculus in the left pelvis. This could represent a pelvi c phlebolith versus distal ureteral calculus. Correlate clinically with consideration for CT. [facility], , 10/13/2024 9:52 PM
[2024-10-13] MEDS: SODIUM CHLORIDE 0.9% 1,000 ML IV ONE (22:06)
[2024-10-13] MEDS: KETOROLAC 15 MG/ML 1 ML VIAL IVP STA (22:07)
[2024-10-13] MEDS: PANTOPRAZOLE 40 MG/10 ML VIAL IVP STA (22:08)
[2024-10-13] MEDS: ONDANSETRON 4 MG/2 ML VIAL IVP STA (22:08)
[2024-10-13] MEDS: ONDANSETRON ODT 8 MG TAB.RAPDIS PO STA (22:14)
[2024-10-13 22:28] LABS: Basophils % (A) 0 %; Eosinophils # (A) 0.1 k/uL (0-0.7); Eosinophils % (A) 1 %; HCT 43.8 % (34.0-46.0); HGB 13.9 gm/dL (11.4-16.0); Lymphocytes % (A) 26 %; MCH 29.7 pg (25.0-35.0); MCHC 31.8 g/dL (31.0-37.0); MCV 93.5 fL (80.0-100.0); Mean Platelet Volume 7.8; Monocytes # (A) 0.4 k/uL (0-1.0); Monocytes % (A) 5 %; Neutrophils % (A) 66 %; Platelet Count 188 k/uL (150-450); RBC 4.68 m/uL (3.80-5.40); RDW 13.9 % (11.5-15.5); WBC 7.7 k/uL (3.8-10.6)
[2024-10-13 22:35] LABS: Appearance,Urine Clear (Clear); Bilirubin,Urine Negative (Negative); Blood,Urine Negative (Negative); Color,Urine Colorless; Glucose,Urine (UA) Negative (Negative); Ketones,Urine Negative (Negative); Leukocyte Esterase,Urine Small (Negative); Nitrite,Urine Negative (Negative); Protein,Urine Negative (Negative); RBC,Urine 1 /hpf (0-5); Specific Gravity,Urine 1.005 (1.001-1.035); Squamous Epithelial Cell,Urine <1 /hpf (0-4); Urobilinogen,Urine <2.0 mg/dL (<2.0); WBC,Urine 1 /hpf (0-5)
[2024-10-13 22:37] LABS: INR 0.9 (<1.2); Partial Thromboplastin Time 23.4 sec (22.0-30.0); Prothrombin Time 10.3 sec (10.0-12.5)
[2024-10-13 22:50] LABS: ALT 29 U/L (4-34); AST 40 U/L (14-36); African American GFR (CKD) >90 (>60 ml/min/1.73 sqM); Albumin 3.9 g/dL (3.5-5.0); Alkaline Phosphatase 56 U/L (38-126); Anion Gap 1 mmol/L; Blood Urea Nitrogen 9 mg/dL (7-17); Calcium 9.8 mg/dL (8.4-10.2); Carbon Dioxide 35 mmol/L (22-30); Chloride 102 mmol/L (98-107); Glucose 87 mg/dL (74-99); Lipase 85 U/L (23-300); Non-African American GFR(CKD) >90 (>60 ml/min/1.73 sqM); Potassium 4.2 mmol/L (3.5-5.1); Sodium 138 mmol/L (137-145); Total Bilirubin 0.7 mg/dL (0.2-1.3); Total Protein 6.8 g/dL (6.3-8.2)
[2024-10-13] MEDS: HYDROmorphone 0.5 MG/0.5 ML SYRINGE IVP STA (22:56)
[2024-10-13 22:59] VITALS: BP 109/56; PULSE 60; RESP 18
== END 2024-10-14 00:01 | disposition home or self-care (01) ==
LOC: EC 20:28
DX: R10.84 Generalized abdominal pain (principal); Z88.1 Allergy status to other antibiotic agents; Z88.2 Allergy status to sulfonamides
CPT/HCPCS: 36415; 80053; 83605; 83690; 85025; 85610; 85730; 81001; 74018; 99284; 96374; 96375 ×3; 96361; J2405; J1885; J1171; J2470